=== PATIENT | female | born 1950 ===

== ENCOUNTER 2021-11-05 05:35 | Day surgery (SDC) | payer OTHER ==
[~2021-11-05 05:35] MED LIST: CARV PO; ESTRO PO; METFORMIN PO; SIMVASTAT PO; TEST; [UNRECOGNIZED DRUG - OTHER] PO
[2021-11-05] MEDS ORDERED: ULTRACET PO (09:20)
[2021-11-05] MEDS ORDERED: MACROBID 100 M100 MG PO (09:20)
== END 2021-11-05 10:55 | disposition home or self-care (01) ==
LOC: CIR.AMB 05:35
PROVIDERS: ATTEND Obstetrics & Gynecology Gynecology
DX: N39.3 Stress incontinence (female) (male) (principal); Z20.822 Contact with and (suspected) exposure to COVID-19
CPT/HCPCS: 57288; C1771